=== PATIENT | female | born 1940 | race Caucasian/White ===

== ENCOUNTER 2016-12-26 15:01 | Inpatient (IN) | payer MEDICARE, OTHER ==
[~2016-12-26] VITALS: Ht 154.9 cm; Wt 52.2 kg
--- NOTE | 2016-12-26 15:02 | NUR ---
AAOX3, BIBRA 878 FROM HOME C/O N/V/D AFTER TAKING A NEW PRESCRIPTION MEDICATION. BS=80MG/DL IN THE FIELD. RR IS EVEN AND UNLABORED WITH NAD NOTED. SKIN IS WARM AND DRY. AWAITING MD FOR KALYN. Addendum: 12/26/16 at 1541 by COMFORT THE NEW PRESCRIBED MEDICATION IS CALLED NAMZADIANE.
--- NOTE | 2016-12-26 15:14 | NUR ---
DR SCALES AT BS FOR KALYN.
[2016-12-26] MEDS ORDERED: ONDANSETRON HCL/PF 4 MG/2 ML VIAL ONE ×3 (15:23→17:29)
[2016-12-26] MEDS ORDERED: IV SET PRIMARY 1 EA INFUS.SET MC ONE (15:23)
[2016-12-26] MEDS ORDERED: IV NS 0.9% 1,000 ML ONE (15:23)
[2016-12-26] MEDS ORDERED: INSULIN HUMALOG PUMP (15:25)
[2016-12-26] MEDS ORDERED: AMLO2.5T PO (15:25)
[2016-12-26 15:29] LABS: BASOPHILS # (AUTO) 0.1 /CMM (0.0-0.2); BASOPHILS % (AUTO) 0.7 % (0.0-2.0); EOSINOPHILS # (AUTO) 0.1 /CMM (0.0-0.7); EOSINOPHILS % (AUTO) 1.1 % (0.0-6.0); HEMATOCRIT 38 % (33-45); HEMOGLOBIN 12.9 g/dL (11.5-14.8); LYMPHOCYTES # (AUTO) 1.1 /CMM (0.8-4.8); LYMPHOCYTES % (AUTO) 12.4 % (20.0-44.0); MEAN CORPUSCULAR HEMOGLOBIN 31 PG (26.0-33.0); MEAN CORPUSCULAR HGB CONC 34 g/dl (31.0-36.0); MEAN CORPUSCULAR VOLUME 91 fL (82-100); MONOCYTES # (AUTO) 0.3 /CMM (0.1-1.30); MONOCYTES % (AUTO) 3.8 % (2.0-12.0); NEUTROPHILS # (AUTO) 7.5 /CMM (1.8-8.9); PLATELET COUNT (AUTO) 307 /CMM (150-450); RDW COEFFICIENT OF VARIATION 13.1 (11.5-15.0); RED BLOOD CELL COUNT(AUTO) 4.11 MIL/uL (4.0-5.2); WHITE BLOOD COUNT (AUTO) 9.1 K/uL (4.3-11.0)
[2016-12-26] MEDS ORDERED: IV NS 0.9% 1,000 ML BAG IV ONE (15:30)
[2016-12-26] MEDS ORDERED: ONDANSETRON HCL/PF 4 MG/2 ML VIAL IVP ONE (15:30)
[2016-12-26 15:40] LABS: CARBON DIOXIDE 28 mmol/L (21-32); CHLORIDE 105 mmol/L (98-107); CREATININE 0.9 mg/dL (0.6-1.3); GLUCOSE 82 mg/dL (74-106); POTASSIUM 3.8 mmol/L (3.5-5.1); SODIUM SERUM 142 mmol/L (136-145); UREA NITROGEN, BLOOD 29 mg/dL (7-18)
[2016-12-26 15:48] LABS: TROPONIN I < 0.017 ng/mL (0.00-0.056)
[2016-12-26] MEDS ORDERED: METOCLOPRAMIDE HCL 10 MG/2 ML VIAL ONE (15:52)
[2016-12-26] MEDS ORDERED: IV NS 0.9% 50 ML IV ONE (15:52)
[2016-12-26] MEDS ORDERED: SECONDARY IV SET 1 EA INFUS.SET MC ONE (15:52)
[2016-12-26 15:57] LABS: ALANINE AMINOTRANSFERASE 24 U/L (12-78); ALBUMIN 3.6 g/dL (3.4-5.0); ALKALINE PHOSPHATASE 90 U/L (46-116); ASPARTATE AMINOTRANSFERASE 22 U/L (15-37); BILIRUBIN,DIRECT 0.1 mg/dL (0.0-0.2); BILIRUBIN,TOTAL 0.4 mg/dL (0.2-1.0); TOTAL PROTEIN, SERUM 7.1 g/dL (6.4-8.2)
[2016-12-26] MEDS ORDERED: METOCLOPRAMIDE HCL 10 MG/2 ML VIAL IV ONE (16:00)
[2016-12-26] MEDS ORDERED: ONDANSETRON HCL/PF 4 MG/2 ML VIAL IV ONE ×2 (16:00→18:00)
--- NOTE | 2016-12-26 16:17 | NUR ---
DR SCALES AT BS FOR KALYN.
--- NOTE | 2016-12-26 16:24 | NUR ---
DARRIUS GARCIA, RUBINA LOMBARDI NP COMMERCIAL ESCROW OFFICER
--- NOTE | 2016-12-26 16:25 | NUR ---
CALLED NURSING SUP. FOR TELE BED
[2016-12-26 17:07] LABS: APPEARANCE,URINE Clear (CLEAR); BILIRUBIN,URINE Negative (NEGATIVE); BLOOD, URINE Negative Ery/uL (NEGATIVE); COLOR,URINE Yellow (YELLOW); KETONES,URINE 15 (NEGATIVE); LEUKOCYTE ESTERASE ,URINE Negative (NEGATIVE); NITRITE, URINE Negative (NEGATIVE); PH,URINE 8.5 (5.0-8.0); PROTEIN,URINE Negative (NEGATIVE); UGLUCOSE Negative (NEGATIVE); UROBILINOGEN,URINE 0.2 EU/dL (0.2)
--- NOTE | 2016-12-26 17:19 | NUR ---
REPORT GIVEN TO CHANTELLE MARIN FOR ALEXIS TELE [phone]
[2016-12-26 17:26] LABS: BACTERIA,URINE None seen /HPF (None Seen); RBC,URINE 0-2 /HPF (0-2); SQUAMOUS EPITHELIAL CELL,UR Few /HPF (None Seen); WBC,URINE 0-2 /HPF (0-3)
--- NOTE | 2016-12-26 17:35 | NUR ---
DR SCALES VERBALLY ORDERED ZOFRAN 4MG IVP
--- NOTE | 2016-12-26 18:15 | NUR ---
RN ADMITTING NOTES PATIENT ARRIVED TO UNIT AT 1814. ALERT AND ORIENTED X3. AT BEDSIDE. COMPLAINING ON NAUSEA. NO EMESIS PRESENT AT THIS TIME. WILL CONTINUE TO ASSESS AND MONITOR PATIENT CONDITION.
[2016-12-26] MEDS ORDERED: ZOLPIDEM TARTRATE 5 MG TABLET PO PRN (18:30)
[2016-12-26] MEDS ORDERED: MAGNESIUM HYDROXIDE 30 ML UDC PO PRN (18:30)
[2016-12-26] MEDS ORDERED: DEXTROSE 50%-WATER 50 ML DISP.SYRIN IV PRN (18:30)
[2016-12-26] MEDS ORDERED: ACETAMINOPHEN 325 MG TABLET PO PRN (18:30)
[2016-12-26] MEDS ORDERED: IV D5/ 0.9% NACL 1,000 ML IV PRN (18:30)
[2016-12-26] MEDS ORDERED: Z GUARD REMEDY 2 OZ OINT TP PRN (18:30)
[2016-12-26] MEDS ORDERED: ONDANSETRON HCL/PF 4 MG/2 ML VIAL IVP PRN (18:30)
[2016-12-26] MEDS: BLOOD SUGAR DIAGNOSTIC 1 EACH STRIP IN SCH ×2 (18:47→20:50)
--- NOTE | 2016-12-26 19:05 | NUR ---
FRUIT LOADER MACHINE OPERATOR NOTES: RECEIVED PT AWAKE AND A/O X3 IN BED WITH AT BEDSIDE. PT IS ON TELE AND IS SINUS RHYTHM 69. CALL LIGHT WITHIN PT'S REACH. BED KEPT IN LOCKED, LOWEST POSITION, AND SIDE RAILS X 2 UP. PT HAS IV ON R HAND 20G AND IS PATENT AND INTACT. PT IS TO BE INFUSED WITH IV D5/0.9%NACL 1,000 ML AT 75ML/HR. NO SIGNS OR SYMPTOMS OF DISTRESS NOTED AT THIS TIME. PT HAS HER OWN INSULIN PUMP. WILL CONTINUE TO MONITOR PT.
--- NOTE | 2016-12-26 19:24 | NUR ---
RN CLOSING NOTES GAVE REPORT TO TECHNICAL MANAGER NURSE FOR ALEXIS.
[2016-12-26] MEDS ORDERED: IV SET PRIMARY PUMP SET 1 EA INFUS.SET MC ONE (19:57)
[2016-12-26 20:00] VITALS: BP 143/64
[2016-12-26 20:24] VITALS: BP 143/64
--- NOTE | 2016-12-26 20:52 | NUR ---
INVOICE MACHINE OPERATOR NOTES: BLOOD SUGAR WAS 125. WILL CONTINUE TO MONITOR PT.
[2016-12-27] VITALS (7 sets, daily range): BP systolic 140–144; BP diastolic 55–89
--- NOTE | 2016-12-27 00:01 | NUR ---
MATHEMATICIAN NOTES: BLOOD SUGAR WAS 190. WILL CONTINUE TO MONITOR PT.
[2016-12-27] MEDS: BLOOD SUGAR DIAGNOSTIC 1 EACH STRIP IN SCH ×3 (04:15→09:07)
[2016-12-27 07:03] LABS: BASOPHILS % (AUTO) 0.6 % (0.0-2.0); EOSINOPHILS % (AUTO) 0.6 % (0.0-6.0); HEMATOCRIT 38 % (33-45); HEMOGLOBIN 13.1 g/dL (11.5-14.8); LYMPHOCYTES # (AUTO) 1.3 /CMM (0.8-4.8); MEAN CORPUSCULAR HEMOGLOBIN 32 PG (26.0-33.0); MEAN CORPUSCULAR HGB CONC 34 g/dl (31.0-36.0); MEAN CORPUSCULAR VOLUME 92 fL (82-100); MONOCYTES # (AUTO) 0.5 /CMM (0.1-1.30); MONOCYTES % (AUTO) 6.5 % (2.0-12.0); NEUTROPHILS # (AUTO) 5.5 /CMM (1.8-8.9); NEUTROPHILS % (AUTO) 74.3 % (43.0-81.0); PLATELET COUNT (AUTO) 290 /CMM (150-450); RED BLOOD CELL COUNT(AUTO) 4.15 MIL/uL (4.0-5.2); WHITE BLOOD COUNT (AUTO) 7.4 K/uL (4.3-11.0)
--- NOTE | 2016-12-27 07:05 | NUR ---
MARKET DEVELOPMENT TRAINER NOTES: ALL NEEDS WERE ATTENDED AND ANTICIPATED FOR. NO SIGNS OR SYMPTOMS OF DISTRESS NOTED AT THIS TIME. PT IS LAYING IN BED AND IS AWAKE, A/OX3. PT IS ON TELE MONITOR AND IS SINUS RHYTHM 69. PT HAS IV ON R HAND 20G AND IS PATENT AND INTACT AND IS BEING INFUSED WITH D5/0.9% NACL 1,000ML AT 75ML/HR. CALL LIGHT WITHIN PT'S REACH. BED KEPT IN LOCKED, LOWEST POSITION, AND SIDE RAILS X 2 UP. ENDORSED TO AM NURSE FOR ALEXIS.
[2016-12-27 07:23] LABS: CHOLESTEROL 231 mg/dL (<200); HDL CHOLESTEROL 85 mg/dL (40-60); LDL 119 mg/dL (0-99); TRIGLYCERIDES 52 mg/dL (30-150)
[2016-12-27 07:29] LABS: CALCIUM, SERUM 8.6 mg/dL (8.5-10.1); CARBON DIOXIDE 27 mmol/L (21-32); CHLORIDE 107 mmol/L (98-107); CREATININE 0.8 mg/dL (0.6-1.3); GLUCOSE 199 mg/dL (74-106); PHOSPHORUS 2.9 mg/dL (2.5-4.9); POTASSIUM 4.1 mmol/L (3.5-5.1); SODIUM SERUM 144 mmol/L (136-145); UREA NITROGEN, BLOOD 19 mg/dL (7-18)
--- NOTE | 2016-12-27 07:30 | NUR ---
FINGERNAIL FORMER NOTES PT IN BED, AWAKE, ALERT AND ORIENTED, NO COMPLAINT OF PAIN, BREATHING PATTERN NORMAL, CALL LIGHT WITHIN REACH, PLAN OF CARE DISCUSSED WITH PT, VERBALIZED UNDERSTANDING, NEEDS ATTENDED.
[2016-12-27] MEDS ORDERED: AMLODIPINE BESYLATE 2.5 MG TABLET PO SCH (09:00)
--- NOTE | 2016-12-27 10:53 | NUR ---
RN MS NOTES PT IN BED, AWAKE, ALERT AND ORIENTED, NOT IN PAIN OR DISTRESS, NO COMPLAINT OF NAUSEA OR VOMITING, NO DIARRHEA NOTED, PT SEEN BY DR. MOREL, PLAN OF CARE AND DISCHARGE ORDER GIVEN, PT EDUCATION GIVEN REGARDING INSULIN PUMP USE, PT TO FOLLOW UP WITH HER PRIMARY CARE PHYSICIAN, PT VERBALIZED UNDERSTANDING, DISCHARGE INSTRUCTIONS PROVIDED, VERBALIZED UNDERSTANDING, BELONGINGS ACCOUNTED FOR, PICKED UP BY , PT ABLE TO AMBULATE WITH STEADY GAIT, LEFT IN STABLE CONDITION.
== END 2016-12-27 10:47 | disposition home or self-care (01) | DRG 641 ==
LOC: ER 15:05 → TELE 17:42 → MED 12-27 08:23
PROVIDERS: ADMIT Nurse Practitioner Acute Care; ATTEND Nurse Practitioner Acute Care
DX: E86.0 Dehydration (principal); R11.2 Nausea with vomiting, unspecified; I25.10 Atherosclerotic heart disease of native coronary artery without angina pectoris; Z79.4 Long term (current) use of insulin; Z88.2 Allergy status to sulfonamides; Z99.89 Dependence on other enabling machines and devices; T50.995A Adverse effect of other drugs, medicaments and biological substances, initial encounter; F03.90 Unspecified dementia, unspecified severity, without behavioral disturbance, psychotic disturbance, mood disturbance, and anxiety; Y92.009 Unspecified place in unspecified non-institutional (private) residence as the place of occurrence of the external cause; E10.649 Type 1 diabetes mellitus with hypoglycemia without coma
CPT/HCPCS: 36415; 71010-TC; 80048-TC; 80061-TC; 80076-TC; 81000-TC; 82962-TC; 83735-TC; 83880; 84100-TC; 84484-TC; 85025-TC; 87081-TC; A4216; A4606; J2405; J2765; J7030; J7042; Z7610

== ENCOUNTER 2017-07-02 12:03 | Inpatient (IN) | payer MEDICARE, OTHER ==
[~2017-07-02] VITALS: Ht 154.9 cm; Wt 50.3 kg
[~2017-07-02 12:03] MED LIST: AMLO2.5T PO; INSULIN HUMALOG PUMP
[2017-07-02] MEDS ORDERED: NITROGLYCERIN 0.4 MG/TAB BOTTLE ONE (12:40)
[2017-07-02] MEDS ORDERED: ASPIRIN 81 MG TAB.CHEW ONE (12:40)
[2017-07-02 12:49] LABS: BASOPHILS # (AUTO) 0.1 /CMM (0.0-0.2); BASOPHILS % (AUTO) 0.9 % (0.0-2.0); EOSINOPHILS % (AUTO) 0.1 % (0.0-6.0); HEMATOCRIT 35 % (33-45); HEMOGLOBIN 11.6 g/dL (11.5-14.8); LYMPHOCYTES # (AUTO) 0.7 /CMM (0.8-4.8); LYMPHOCYTES % (AUTO) 6.8 % (20.0-44.0); MEAN CORPUSCULAR HEMOGLOBIN 31 PG (26.0-33.0); MEAN CORPUSCULAR HGB CONC 33 g/dl (31.0-36.0); MEAN CORPUSCULAR VOLUME 94 fL (82-100); MONOCYTES # (AUTO) 0.5 /CMM (0.1-1.30); MONOCYTES % (AUTO) 4.9 % (2.0-12.0); NEUTROPHILS # (AUTO) 9.6 /CMM (1.8-8.9); NEUTROPHILS % (AUTO) 87.3 % (43.0-81.0); PLATELET COUNT (AUTO) 266 /CMM (150-450); RDW COEFFICIENT OF VARIATION 13.9 (11.5-15.0); RED BLOOD CELL COUNT(AUTO) 3.77 MIL/uL (4.0-5.2)
--- NOTE | 2017-07-02 12:57 | NUR ---
MEDICATIONS GIVEN ORDERED BP 158/71. PT AMBULATED TO BATHROOM NO DIZZINESS REPORTED.
[2017-07-02] MEDS ORDERED: ASPIRIN 81 MG TAB.CHEW PO ONE (13:00)
[2017-07-02] MEDS ORDERED: NITROGLYCERIN 0.4 MG/TAB BOTTLE SL ONE (13:00)
[2017-07-02 13:01] LABS: ALANINE AMINOTRANSFERASE 37 U/L (12-78); ALBUMIN 3.4 g/dL (3.4-5.0); ALKALINE PHOSPHATASE 103 U/L (46-116); ASPARTATE AMINOTRANSFERASE 23 U/L (15-37); BILIRUBIN,DIRECT 0.1 mg/dL (0.0-0.2); BILIRUBIN,TOTAL 0.6 mg/dL (0.2-1.0); CALCIUM, SERUM 9.2 mg/dL (8.5-10.1); CARBON DIOXIDE 25 mmol/L (21-32); CHLORIDE 102 mmol/L (98-107); CREATININE 1.1 mg/dL (0.6-1.3); INR 0.96 (0.87-1.13); POTASSIUM 4.9 mmol/L (3.5-5.1); SODIUM SERUM 138 mmol/L (136-145); TROPONIN I < 0.017 ng/mL (0.00-0.056); UREA NITROGEN, BLOOD 39 mg/dL (7-18)
[2017-07-02 13:03] LABS: GLUCOSE 540 mg/dL (74-106)
[2017-07-02] MEDS ORDERED: NITR0.4T6 SL (13:26)
[2017-07-02] MEDS ORDERED: PRAV40TA3 PO (13:26)
[2017-07-02] MEDS ORDERED: BLOO-668 IN (13:28)
[2017-07-02] MEDS ORDERED: IV NS 0.9% 1,000 ML BAG IV ONE (13:30)
[2017-07-02] MEDS ORDERED: NITROGLYCERIN 0.4 MG/TAB BOTTLE SL PRN (14:00)
[2017-07-02] MEDS ORDERED: MAGNESIUM HYDROXIDE 30 ML UDC PO PRN (14:00)
[2017-07-02] MEDS ORDERED: ONDANSETRON HCL/PF 4 MG/2 ML VIAL IVP PRN (14:00)
[2017-07-02] MEDS ORDERED: Z GUARD REMEDY 2 OZ OINT TP PRN (14:00)
[2017-07-02] MEDS ORDERED: MAG HYDROX/AL HYDROX/SIMETH 30 ML UDC PO PRN (14:00)
[2017-07-02] MEDS ORDERED: ZOLPIDEM TARTRATE 5 MG TABLET PO PRN (14:00)
[2017-07-02] MEDS ORDERED: DEXTROSE 50%-WATER 50 ML DISP.SYRIN IV PRN (14:00)
[2017-07-02] MEDS ORDERED: BLOOD SUGAR DIAGNOSTIC 1 EACH STRIP IN SCH (14:00)
[2017-07-02] MEDS ORDERED: ACETAMINOPHEN 325 MG TABLET PO PRN (14:00)
[2017-07-02] MEDS ORDERED: HYDROCODONE/APAP 5/325MG 1 EACH TABLET PO PRN ×2 (14:00→14:30)
--- NOTE | 2017-07-02 14:15 | NUR ---
RN ADMITTING NOTES PATIENT ARRIVED TO FLOOR VIA A GURNEY FROM ER. NO SIGNS AND SYMPTOMS OF DISTRESS. AT BEDSIDE. BED IN LOW POSITION, LOCKED AND TWO SIDE RAILS ARE UP. WILL CONTINUE TO ASSESS AND MONITOR PATIENT.
--- NOTE | 2017-07-02 15:37 | NUR ---
DR BIGGS NOTIFIED OF BLOOD SUGAR 420. PATIENT DOESN'T WANT TO TAKE INSULIN PRESCRIBED.
--- NOTE | 2017-07-02 15:45 | NUR ---
PER DR BIGGS, GIVE 10 UNITS OF INSULIN AND RE-CHECK BEFORE DINNER
--- NOTE | 2017-07-02 15:50 | NUR ---
DIANNE AGREED TO 10 UNITS. ADMINISTERED
[2017-07-02] MEDS: INSULIN REGULAR, HUMAN 100 UNIT/ML 3 ML VIAL SQ PRN ×3 (15:55→23:50)
[2017-07-02 16:11] VITALS: BP 125/64
--- NOTE | 2017-07-02 17:35 | NUR ---
RE-CHECKED BLOOD SUGAR. BLOOD SUGAR 355, 20 UNITS ADMINISTERED. AWARE
[2017-07-02] MEDS: BLOOD SUGAR DIAGNOSTIC 1 EACH STRIP IN SCH ×2 (17:46→23:47)
--- NOTE | 2017-07-02 18:53 | NUR ---
RN CLOSING NOTES PATIENT IS IN BED RESTING, ALERT AND ORIENTED TO NAME, PLACED AND TIME. NO ACUTE CHANGES THROUGHOUT THE SHIFT. NO SIGNS OF DISTRESS OR SHORT OF BREATH. IV ACCESS IS INTACT AND PATENT. ALL NEEDS WERE ANTICIPATED AND MET. PATIENT KEPT DRY AND CLEAN. BED IS IN LOW AND LOCKED POSITION, CALL LIGHT WITHIN REACH FOR SAFETY. WILL ENDORSE TO CYLINDER TESTER.
--- NOTE | 2017-07-02 19:25 | NUR ---
TELE/RN NOTES RECEIVED PT. LYING IN BED. AWAKE, ALERT AND ORIENTED X4. BREATHING EVEN AND UNLABORED ON ROOM AIR. NO SOB, RESPIRATORY DISTRESS OR COMPLAINTS OF PAIN NOTED AT THIS TIME. NO COMPLAINTS OF CHEST PAIN NOTED AT THIS TIME. PT. WITH EXTERNAL PAPER STRIPPER PRESENT AND INTACT. CURRENT RHYTHM = SINUS RHYTHM HR 79. PT. WITH RIGHT AC 20 GAUGE IV SALINE LOCK PRESENT, PATENT AND INTACT. BED LOCKED AND IN LOWEST POSITION, SIDE RAILS UP X2, CALL LIGHT WITHIN REACH, WILL CONTINUE TO MONITOR.
[2017-07-02 20:00] VITALS: BP 120/54
[2017-07-02] MEDS ORDERED: ATORVASTATIN 10 MG TABLET PO SCH (22:00)
[2017-07-03] VITALS: BP 114/54
[2017-07-03 04:00] VITALS: BP 108/57
[2017-07-03] MEDS: BLOOD SUGAR DIAGNOSTIC 1 EACH STRIP IN SCH ×2 (06:23→12:27)
[2017-07-03] MEDS: INSULIN REGULAR, HUMAN 100 UNIT/ML 3 ML VIAL SQ PRN ×3 (06:24→16:02)
--- NOTE | 2017-07-03 06:48 | NUR ---
TELE/RN NOTES PT. IS LYING IN BED RESTING. BREATHING EVEN AND UNLABORED ON ROOM AIR. NO SOB, RESPIRATORY DISTRESS OR COMPLAINTS OF PAIN NOTED AT THIS TIME. NO COMPLAINTS OF CHEST PAIN NOTED AT THIS TIME. PT. APPEARS COMFORTABLE AT THE MOMENT. PT. WITH EXTERNAL EQUIPMENT PROCESSER STORAGE PRESENT AND INTACT. CURRENT RHYTHM = SINUS RHYTHM HR 76. PT. WITH RIGHT AC 20 GAUGE IV SALINE LOCK PRESENT, PATENT AND INTACT. ALL PT. NEEDS MET. ALL DUE MEDICATIONS GIVEN. BED LOCKED AND IN LOWEST POSITION, SIDE RAILS UP X2, CALL LIGHT WITHIN REACH, WILL ENDORSE TO DAYSHIFT NURSE FOR CONTINUITY OF CARE.
[2017-07-03 07:54] LABS: BASOPHILS # (AUTO) 0.1 /CMM (0.0-0.2); BASOPHILS % (AUTO) 0.8 % (0.0-2.0); EOSINOPHILS % (AUTO) 0.3 % (0.0-6.0); HEMATOCRIT 34 % (33-45); HEMOGLOBIN 11.2 g/dL (11.5-14.8); LYMPHOCYTES # (AUTO) 1.5 /CMM (0.8-4.8); LYMPHOCYTES % (AUTO) 14.9 % (20.0-44.0); MEAN CORPUSCULAR HEMOGLOBIN 31 PG (26.0-33.0); MEAN CORPUSCULAR HGB CONC 33 g/dl (31.0-36.0); MEAN CORPUSCULAR VOLUME 93 fL (82-100); MONOCYTES # (AUTO) 0.7 /CMM (0.1-1.30); MONOCYTES % (AUTO) 6.5 % (2.0-12.0); NEUTROPHILS # (AUTO) 8.1 /CMM (1.8-8.9); NEUTROPHILS % (AUTO) 77.5 % (43.0-81.0); PLATELET COUNT (AUTO) 260 /CMM (150-450); RDW COEFFICIENT OF VARIATION 13.9 (11.5-15.0); RED BLOOD CELL COUNT(AUTO) 3.61 MIL/uL (4.0-5.2); WHITE BLOOD COUNT (AUTO) 10.4 K/uL (4.3-11.0)
[2017-07-03 08:00] VITALS: BP 110/69
--- NOTE | 2017-07-03 08:00 | NUR ---
TELE/RN AM SHIFT INITIAL NOTES RECEIVED PT AWAKE SITTING IN BED, A/O X 4, PT DENIES ANY CHEST PAIN. NO ACUTE CHANGE OF CONDITION NOTED. ON ROOM AIR SATURATING @ 100%, LUNG SOUNDS CLEAR. ON TELE WITH SINUS RHYTHM, HR 79. IV SITE FLUSHED, PATENT WITH NO S/S OF INFECTION. PT IS COMFORTABLE AT THIS TIME. SCHEDULED AM MEDS TO BE GIVEN. CL WITHIN REACHED AND SAFETY MAINTAINED. ON GOING MONITORING.
--- NOTE | 2017-07-03 08:15 | NUR ---
TELE/RN ROUNDS - DR. RUDOLPH PT SEEN & EXAMINED BY DR. RUDOLPH, WITH ORDER RECEIVED TO OBTAIN CONSENT FOR MYOCARDIAL STRESS TEST. NEW ORDER NOTED AND TO BE CARRIED OUT.
[2017-07-03 08:20] LABS: CALCIUM, SERUM 8.8 mg/dL (8.5-10.1); CARBON DIOXIDE 24 mmol/L (21-32); CHLORIDE 108 mmol/L (98-107); CREATININE 0.9 mg/dL (0.6-1.3); GLUCOSE 138 mg/dL (74-106); MAGNESIUM 1.9 mg/dL (1.8-2.4); PHOSPHORUS 2.8 mg/dL (2.5-4.9); POTASSIUM 4.3 mmol/L (3.5-5.1); SODIUM SERUM 142 mmol/L (136-145); UREA NITROGEN, BLOOD 34 mg/dL (7-18)
[2017-07-03 08:28] LABS: CHOLESTEROL 162 mg/dL (<200); HDL CHOLESTEROL 96 mg/dL (40-60); LDL 63 mg/dL (0-99); TRIGLYCERIDES 55 mg/dL (30-150)
[2017-07-03] MEDS ORDERED: REGADENOSON 0.4 MG/5 ML DISP.SYRIN IVP ONE (08:30)
[2017-07-03] MEDS ORDERED: CARVEDILOL 6.25 MG TABLET PO SCH (09:00)
[2017-07-03] MEDS ORDERED: LOSARTAN POTASSIUM 50 MG TABLET PO SCH (09:00)
[2017-07-03] MEDS ORDERED: AMLODIPINE BESYLATE 2.5 MG TABLET PO SCH (09:00)
--- NOTE | 2017-07-03 09:40 | NUR ---
TELE1/RN ROUNDS - DR. BIGGS PT SEEN & EXAMINED BY DR. BIGGS. TO CONNECT INSULIN PUMP TO PT. NO NEW ORDERS RECEIVED AT THIS TIME. MONITORING CONTINUED.
[2017-07-03 09:43] LABS: THYROID STIMULATING HORMONE 1.094 uIU/mL (0.358-3.74)
[2017-07-03] MEDS ORDERED: CARV6.252 PO (09:48)
[2017-07-03] MEDS ORDERED: LOSA50TA3 PO (09:48)
--- NOTE | 2017-07-03 15:51 | NUR ---
MS/RN STAT GLUCOSE RESULT NOTIFIED DR. BIGGS OF RESULT OF STAT BLOOD GLUCOSE, 440. WITH ORDERS TO GIVE 20 UNITS OF REGULAR INSULIN PER THE SLIDING SCORE, PT HAS NO S/S OF HYPERGLYCEMIA. ORDER NOTED AND CARRIED OUT.
[2017-07-03 16:00] VITALS: BP_SYST 114; BP_SYST 127; BP_DIAS 59; BP_DIAS 71
[2017-07-03] MEDS ORDERED: INSULIN REGULAR, HUMAN 100 UNIT/ML 10 ML VIAL SQ ONE (16:30)
--- NOTE | 2017-07-03 17:00 | NUR ---
MS/RN Requesting to go home Patient requesting to go home and take care of blood sugars, stated that the longer she remained in the hospital, the higher her blood sugars would be. Stated that regular insulin does not work for her and that she needed humalog, and for the medication to be administered throughout the day via her insulin pump. Dr Gonzalez made aware, order given to discharge patient to home.
--- NOTE | 2017-07-03 17:17 | NUR ---
MS/factory manager Patient discharged to home in stable condition, escorted to main lobby by and BUILDING CERTIFIER via wheelchair. All personal belongings previously signed for, exit care completed by Katharine. Heplock and name bands removed prior to discharge.
--- NOTE | 2017-07-03 17:18 | NUR ---
MS/MASONRY INSPECTOR HOME PT WAS GIVEN DISCHARGE INSTRUCTIONS EARLIER IN THE DAY, VERBALIZED UNDERSTANDING. PERSONAL BELONGINGS RETURNED TO PT, INVENTORY LOG SIGNED OFF. DISCHARGE DOCUMENTS GIVEN TO PT. IV SITE WAS REMOVED BY CHARGE NURSE.
== END 2017-07-03 17:20 | disposition home or self-care (01) | DRG 193 ==
LOC: ER 12:07 → TELE 13:36 → MED 07-03 10:02
PROVIDERS: ADMIT Family Medicine; ATTEND Family Medicine
DX: R09.1 Pleurisy (principal); N17.0 Acute kidney failure with tubular necrosis; E10.65 Type 1 diabetes mellitus with hyperglycemia; I25.10 Atherosclerotic heart disease of native coronary artery without angina pectoris; I10 Essential (primary) hypertension; I25.2 Old myocardial infarction; I70.0 Atherosclerosis of aorta; Z96.41 Presence of insulin pump (external) (internal); Z79.4 Long term (current) use of insulin; E10.9 Type 1 diabetes mellitus without complications; Z88.5 Allergy status to narcotic agent; Z88.2 Allergy status to sulfonamides
CPT/HCPCS: 36415; 71010-TC; 80048-TC; 80061-TC; 80076-TC; 82728-TC; 82947-TC; 82962-TC; 83540-TC; 83735-TC; 84100-TC; 84439-TC; 84443-TC; 84484-TC; 85025-TC; 85378-TC; 85730-TC; 87081-TC; 93307-TC; A4606; J1815; J2405; J2785; J7030; Z7610

== ENCOUNTER 2017-07-08 06:07 | Inpatient (IN) | payer MEDICARE, OTHER ==
[~2017-07-08] VITALS: Ht 157.5 cm; Wt 52.2 kg
[~2017-07-08 06:07] MED LIST changes: -AMLO2.5T PO; +BLOO-668 IN; +CARV6.252 PO; +LOSA50TA3 PO; +NITR0.4T48 SL; +PRAV40TA3 PO
--- NOTE | 2017-07-08 06:10 | NUR ---
To bed 6 a 76 yo female patient bibself c/o chest pain x 2 hrs. Patient is aaox4, nad noted, vss. nondiaphoretic. ambulatory. placed patient on tele and vs monitor. gowned. comfort measures initiated.
--- NOTE | 2017-07-08 06:25 | NUR ---
Dr Gold at bedside to evaluate patient.
[2017-07-08] MEDS ORDERED: NITROGLYCERIN 0.4 MG/TAB BOTTLE ONE (06:37)
--- NOTE | 2017-07-08 06:40 | NUR ---
started a saline lock on the right forearm g20, blood drawn and sent to lab.
[2017-07-08] MEDS ORDERED: NITROGLYCERIN 0.4 MG/TAB BOTTLE SL ONE (07:00)
[2017-07-08 07:03] LABS: BASOPHILS % (AUTO) 0.2 % (0.0-2.0); EOSINOPHILS # (AUTO) 0.2 /CMM (0.0-0.7); EOSINOPHILS % (AUTO) 1.6 % (0.0-6.0); HEMATOCRIT 33 % (33-45); HEMOGLOBIN 10.8 g/dL (11.5-14.8); LYMPHOCYTES # (AUTO) 1.4 /CMM (0.8-4.8); LYMPHOCYTES % (AUTO) 13.2 % (20.0-44.0); MEAN CORPUSCULAR HEMOGLOBIN 30 PG (26.0-33.0); MEAN CORPUSCULAR HGB CONC 33 g/dl (31.0-36.0); MEAN CORPUSCULAR VOLUME 93 fL (82-100); MONOCYTES # (AUTO) 0.5 /CMM (0.1-1.30); MONOCYTES % (AUTO) 4.6 % (2.0-12.0); NEUTROPHILS # (AUTO) 8.3 /CMM (1.8-8.9); NEUTROPHILS % (AUTO) 80.4 % (43.0-81.0); PLATELET COUNT (AUTO) 298 /CMM (150-450); RDW COEFFICIENT OF VARIATION 13.4 (11.5-15.0); RED BLOOD CELL COUNT(AUTO) 3.56 MIL/uL (4.0-5.2); WHITE BLOOD COUNT (AUTO) 10.3 K/uL (4.3-11.0)
[2017-07-08 07:11] LABS: ALANINE AMINOTRANSFERASE 138 U/L (12-78); ALBUMIN 2.9 g/dL (3.4-5.0); ALKALINE PHOSPHATASE 162 U/L (46-116); ASPARTATE AMINOTRANSFERASE 51 U/L (15-37); BILIRUBIN,TOTAL 0.2 mg/dL (0.2-1.0); CALCIUM, SERUM 8.8 mg/dL (8.5-10.1); CARBON DIOXIDE 28 mmol/L (21-32); CHLORIDE 105 mmol/L (98-107); CREATININE 0.9 mg/dL (0.6-1.3); D-DIMER 1.65 mg/L(FEU (0.17-0.50); GLUCOSE 122 mg/dL (74-106); INR 0.9 (0.87-1.13); POTASSIUM 4.7 mmol/L (3.5-5.1); PROTHROMBIN TIME 9.4 SECS (9.5-12.7); SODIUM SERUM 139 mmol/L (136-145); TOTAL PROTEIN, SERUM 6.8 g/dL (6.4-8.2); UREA NITROGEN, BLOOD 32 mg/dL (7-18)
[2017-07-08 07:14] LABS: TROPONIN I < 0.017 ng/mL (0.00-0.056)
--- NOTE | 2017-07-08 07:15 | NUR ---
report received from Iram LOCKHART for ALEXIS. NAD noted. all needs attended to.
[2017-07-08] MEDS ORDERED: AMLO2.5T2 PO (07:58)
[2017-07-08] MEDS ORDERED: CT SWABBABLE VALVE TRANS SET 1 EA INFUS.SET MC ONE (08:09)
[2017-07-08] MEDS ORDERED: IV NS 0.9% 250 ML IV ONE (08:09)
[2017-07-08] MEDS ORDERED: IOHEXOL-350 100 ML VIAL IV ONE (08:09)
[2017-07-08] MEDS ORDERED: IV NS 0.9% 1,000 ML BAG IV ONE (08:30)
[2017-07-08] MEDS ORDERED: ONDANSETRON HCL/PF 4 MG/2 ML VIAL ONE (08:36)
[2017-07-08] MEDS ORDERED: ONDANSETRON HCL/PF 4 MG/2 ML VIAL IV ONE (09:00)
--- NOTE | 2017-07-08 09:18 | NUR ---
REPORT GIVEN TO TOMAS LOCKHART FOR ADMISSION
--- NOTE | 2017-07-08 09:55 | NUR ---
DR RUDOLPH AT BEDSIDE
--- NOTE | 2017-07-08 10:18 | NUR ---
PT TRANSPORTED TO [facility] IN STABLE CONDITION VIA ACLS PROTOCOL
[2017-07-08 10:25] VITALS: BP 136/54
[2017-07-08] MEDS ORDERED: INSULIN REGULAR, HUMAN 100 UNIT/ML 3 ML VIAL SQ PRN (11:00)
[2017-07-08] MEDS ORDERED: NITROGLYCERIN 0.4 MG/TAB BOTTLE SL PRN (11:00)
[2017-07-08] MEDS ORDERED: ONDANSETRON HCL/PF 4 MG/2 ML VIAL IVP PRN (11:00)
[2017-07-08] MEDS ORDERED: ACETAMINOPHEN 325 MG TABLET PO PRN (11:00)
[2017-07-08] MEDS ORDERED: MORPHINE SULFATE INJ 2 MG/ML DISP.SYRIN IV PRN ×2 (11:00)
[2017-07-08] MEDS ORDERED: DOCUSATE SODIUM 100 MG CAPSULE PO PRN (11:00)
[2017-07-08] MEDS ORDERED: DEXTROSE 50%-WATER 50 ML DISP.SYRIN IV PRN (11:00)
--- NOTE | 2017-07-08 11:00 | NUR ---
RN ADMITTING NOTES PATIENT ARRIVED TO UNIT IN A STABLE CONDITION. NO SIGNS AND SYMPTOMS OF DISTRESS. WILL CONTINUE TO MONITOR AND ASSESS PATIENT THROUGH OUT MY SHIFT
[2017-07-08] MEDS: BLOOD SUGAR DIAGNOSTIC 1 EACH STRIP IN SCH ×2 (11:32→17:36)
[2017-07-08 14:34] LABS: IRON, SERUM 25 ug/dl (50-175); TOTAL IRON BINDING CAPACITY 222 ug/dl (250-450)
[2017-07-08 18:05] VITALS: BP 116/70
--- NOTE | 2017-07-08 18:20 | NUR ---
CHANTELLE AMA DISCHARGE NOTES PATIENT LEFT AMA. PATIENT PROVIDED WITH ALL DISCHARGE INFORMATION AND A COPY OF HER CURRENT MEDICAL RECORD HOSPITALIZATION. PATIENT WILL F/U WITH HER PCP IN AM. PATIENT REFUSED STRESS TEST AND INSISTED ON GOING HOME. RISKS AND BENEFITS EXPLAINED TO PATIENT. PATIENT ADVISED TO COME BACK IF SYMPTOMS ARE WORSENING. TOOK PATIENT HOME VIA PRIVATE CAR.
[2017-07-08] MEDS ORDERED: ATORVASTATIN 10 MG TABLET PO SCH (22:00)
[2017-07-09] MEDS ORDERED: AMLODIPINE BESYLATE 2.5 MG TABLET PO SCH (09:00)
[2017-07-09] MEDS ORDERED: ASPIRIN 81 MG TAB.CHEW PO SCH (09:00)
== END 2017-07-08 18:07 | disposition left against medical advice (07) | DRG 193 ==
LOC: ER 06:12 → TELE 09:25
PROVIDERS: ADMIT Internal Medicine; ATTEND Internal Medicine
DX: R09.1 Pleurisy (principal); N17.0 Acute kidney failure with tubular necrosis; E44.0 Moderate protein-calorie malnutrition; I25.10 Atherosclerotic heart disease of native coronary artery without angina pectoris; I25.2 Old myocardial infarction; Z88.5 Allergy status to narcotic agent; Z88.2 Allergy status to sulfonamides; Z79.4 Long term (current) use of insulin; Z79.899 Other long term (current) drug therapy; I12.9 Hypertensive chronic kidney disease with stage 1 through stage 4 chronic kidney disease, or unspecified chronic kidney disease; E10.22 Type 1 diabetes mellitus with diabetic chronic kidney disease; N18.9 Chronic kidney disease, unspecified; D63.8 Anemia in other chronic diseases classified elsewhere
CPT/HCPCS: 36415; 71010-TC; 76700-TC; 80048-TC; 80076-TC; 82962-TC; 83540-TC; 84484-TC; 85025-TC; 85378-TC; 85730-TC; 87081-TC; J1815; J2405; J7030; J7050; Q9967

== ENCOUNTER 2020-03-05 22:22 | Inpatient (IN) | payer MEDICARE, OTHER ==
[~2020-03-05] VITALS: Ht 154.9 cm; Wt 48.1 kg
[~2020-03-05 22:22] MED LIST changes: +AMLO2.5T2 PO; -CARV6.252 PO; -LOSA50TA3 PO
[2020-03-05] MEDS ORDERED: IV NS 0.9% 500 ML BAG IV ONE (22:30)
[2020-03-05] MEDS ORDERED: ONDANSETRON HCL/PF 4 MG/2 ML VIAL IVP ONE ×2 (22:30→23:30)
--- NOTE | 2020-03-05 22:32 | NUR ---
HARIS FROM HOME FOR C/O DIZZINESS. PT FOUND W/ HIGH BLOOD SUGAR ENROUTE. CURRENTLY AAX4, RESPONSIVE. BREATHING EVENLY. NO SOB. W/ C/O CP. VSS. PT WAS PLACED IN BED 3 AND ON MONITOR. VSS. WILL CONT TO MONITOR ,
[2020-03-05] MEDS ORDERED: ONDANSETRON HCL/PF 4 MG/2 ML VIAL ONE ×2 (22:35→23:17)
[2020-03-05 22:52] LABS: BASOPHILS # (AUTO) 0.1 /CMM (0.0-0.2); BASOPHILS % (AUTO) 0.9 % (0.0-2.0); EOSINOPHILS % (AUTO) 0.4 % (0.0-6.0); HEMATOCRIT 37 % (33-45); HEMOGLOBIN 11.8 g/dL (11.5-14.8); LYMPHOCYTES # (AUTO) 1.2 /CMM (0.8-4.8); LYMPHOCYTES % (AUTO) 12.8 % (20.0-44.0); MEAN CORPUSCULAR HGB CONC 32 g/dl (31.0-36.0); MEAN CORPUSCULAR VOLUME 97 fL (82-100); MONOCYTES # (AUTO) 0.4 /CMM (0.1-1.30); MONOCYTES % (AUTO) 4.2 % (2.0-12.0); NEUTROPHILS # (AUTO) 7.8 /CMM (1.8-8.9); NEUTROPHILS % (AUTO) 81.7 % (43.0-81.0); PLATELET COUNT (AUTO) 274 /CMM (150-450); WHITE BLOOD COUNT (AUTO) 9.5 K/uL (4.3-11.0)
[2020-03-05 23:12] LABS: ALANINE AMINOTRANSFERASE 46 U/L (12-78); ALBUMIN 3.4 g/dL (3.4-5.0); ALKALINE PHOSPHATASE 112 U/L (46-116); ASPARTATE AMINOTRANSFERASE 40 U/L (15-37); BILIRUBIN,DIRECT 0.2 mg/dL (0.0-0.2); BILIRUBIN,TOTAL 0.7 mg/dL (0.2-1.0); CALCIUM, SERUM 9.3 mg/dL (8.5-10.1); CARBON DIOXIDE 22 mmol/L (21-32); CHLORIDE 97 mmol/L (98-107); CREATININE 1.6 mg/dL (0.6-1.3); LIPASE 102 U/L (73-393); POTASSIUM 5.9 mmol/L (3.5-5.1); SODIUM SERUM 132 mmol/L (136-145); TOTAL PROTEIN, SERUM 6.6 g/dL (6.4-8.2); UREA NITROGEN, BLOOD 52 mg/dL (7-18)
[2020-03-05 23:13] LABS: GLUCOSE 569 mg/dL (74-106)
[2020-03-05] MEDS ORDERED: MORPHINE SULFATE INJ 4 MG/ML DISP.SYRIN ONE (23:18)
[2020-03-05] MEDS ORDERED: MORPHINE SULFATE INJ 2 MG/ML DISP.SYRIN IV ONE (23:30)
--- NOTE | 2020-03-06 00:16 | NUR ---
CALLED PT'S TO UPDATE HIM RE PT'S STATUS AND ASK ABOUT HER HOME MEDS W/ NO ANSWER. LEFT A MESSAGE.
[2020-03-06] MEDS ORDERED: INSULIN REGULAR, HUMAN 100 UNIT/ML 10 ML VIAL ONE (00:22)
[2020-03-06] MEDS ORDERED: INSULIN REGULAR, HUMAN 100 UNIT/ML 10 ML VIAL IV ONE (00:30)
--- NOTE | 2020-03-06 00:37 | NUR ---
REPEAT BLOOD SUGAR:479. DR TRAN MADE AWARE .INSULIN PUMP DISCONNECTED AND INSULIN 10U IV GIVEN ORDERED. WILL CONT TO MONITOR,
--- NOTE | 2020-03-06 00:49 | NUR ---
CALL FROM LAB. COVID NEGATIVE.
[2020-03-06] MEDS ORDERED: METOCLOPRAMIDE HCL 10 MG/2 ML VIAL ONE (01:23)
[2020-03-06] MEDS ORDERED: METOCLOPRAMIDE HCL 10 MG/2 ML VIAL IV ONE ×2 (01:30→21:30)
[2020-03-06] MEDS ORDERED: IV NS 0.9% 1,000 ML IV PRN (02:10)
[2020-03-06] MEDS ORDERED: Z GUARD REMEDY 2 OZ OINT TP PRN (02:30)
[2020-03-06] MEDS ORDERED: MORPHINE SULFATE INJ 2 MG/ML DISP.SYRIN IV PRN (02:30)
[2020-03-06] MEDS ORDERED: MAGNESIUM HYDROXIDE 30 ML UDC PO PRN (02:30)
[2020-03-06] MEDS ORDERED: MAG HYDROX/AL HYDROX/SIMETH 30 ML UDC PO PRN (02:30)
[2020-03-06] MEDS ORDERED: SODIUM POLYSTYRENE SULFONATE 15 G/60 ML BOTTLE PO ONE (02:30)
[2020-03-06] MEDS ORDERED: ACETAMINOPHEN 325 MG TABLET PO PRN (02:30)
[2020-03-06] MEDS ORDERED: DEXTROSE 50%-WATER 50 ML DISP.SYRIN IV PRN (02:30)
--- NOTE | 2020-03-06 02:31 | NUR ---
REPORT GIVEN TO DEREK
--- NOTE | 2020-03-06 03:00 | NUR ---
[facility] in stable condition.
[2020-03-06] MEDS ORDERED: METRONIDAZOLE 500MG/ NS 100ML 100 ML IV ONE (03:22)
[2020-03-06] MEDS ORDERED: SODIUM POLYSTYRENE SULFONATE 15 G/60 ML BOTTLE ONE (03:41)
[2020-03-06 04:00] VITALS: BP 116/50
[2020-03-06] MEDS: METRONIDAZOLE 500MG/ NS 100ML 500 MG in PREMIX 1 EA IV SCH ×4 (05:22→23:46)
[2020-03-06] MEDS: INSULIN REGULAR, HUMAN 100 UNIT/ML 3 ML VIAL SQ PRN ×3 (05:36→23:52)
[2020-03-06] MEDS: ONDANSETRON HCL/PF 4 MG/2 ML VIAL IVP PRN ×2 (06:07→18:31)
[2020-03-06] MEDS: BLOOD SUGAR DIAGNOSTIC 1 EACH STRIP IN SCH ×4 (06:16→23:47)
--- NOTE | 2020-03-06 06:21 | NUR ---
RN notes Admitted an 79 year old female from ER with diagnosis of hyperkalemia, AKF, hyperglycemia and malfunctioning insulin pump in stable condition. No distress noted, breathing even and unlabored. Alert and oriented with episodes of forgetfulness, confusion and disorientation. Patient able to ambulate from stretcher to bed with assistance. Complaining of nausea and vomiting, zofran given with help. Blood sugar at 0600 was 405, 20 units per sliding scale. MD aware. Kayexalate given for elevated potassium level, patient able to tolerate PO. No complaint of pain. Vital signs wnl. Kept clean and dry. Will endorse to next shift for continuity of care.
[2020-03-06 06:46] LABS: BASOPHILS % (AUTO) 0.3 % (0.0-2.0); HEMATOCRIT 35 % (33-45); HEMOGLOBIN 11.2 g/dL (11.5-14.8); LYMPHOCYTES # (AUTO) 0.5 /CMM (0.8-4.8); LYMPHOCYTES % (AUTO) 3.8 % (20.0-44.0); MEAN CORPUSCULAR HGB CONC 32 g/dl (31.0-36.0); MEAN CORPUSCULAR VOLUME 97 fL (82-100); MONOCYTES # (AUTO) 0.2 /CMM (0.1-1.30); MONOCYTES % (AUTO) 1.7 % (2.0-12.0); NEUTROPHILS # (AUTO) 12.9 /CMM (1.8-8.9); NEUTROPHILS % (AUTO) 94.2 % (43.0-81.0); PLATELET COUNT (AUTO) 269 /CMM (150-450); RED BLOOD CELL COUNT(AUTO) 3.64 MIL/uL (4.0-5.2); WHITE BLOOD COUNT (AUTO) 13.7 K/uL (4.3-11.0)
--- NOTE | 2020-03-06 07:15 | NUR ---
PHOTO TECHNICIAN NOTES PATIENT IN BED A/OX3 ON ROOM AIR. NO ISOLATION. AMBULATORY WITH ASSIST. RIGHT HAND #20 PATENT NS 100 ML HR RUNNING. NO BEDOYA. CALL LIGHT WITHIN REACH. BED AT THE LOWEST POSITION LOCKED. WILL CONTINUE TO MONITOR THE PATIENT.
[2020-03-06 07:18] LABS: ALANINE AMINOTRANSFERASE 73 U/L (12-78); ALBUMIN 3.2 g/dL (3.4-5.0); ALKALINE PHOSPHATASE 118 U/L (46-116); ASPARTATE AMINOTRANSFERASE 79 U/L (15-37); BILIRUBIN,TOTAL 0.6 mg/dL (0.2-1.0); CALCIUM, SERUM 9.2 mg/dL (8.5-10.1); CARBON DIOXIDE 17 mmol/L (21-32); CHLORIDE 99 mmol/L (98-107); CREATININE 1.4 mg/dL (0.6-1.3); MAGNESIUM 2.1 mg/dL (1.8-2.4); POTASSIUM 5.4 mmol/L (3.5-5.1); SODIUM SERUM 136 mmol/L (136-145); TOTAL PROTEIN, SERUM 6.4 g/dL (6.4-8.2); UREA NITROGEN, BLOOD 49 mg/dL (7-18)
[2020-03-06 07:47] LABS: CHOLESTEROL 165 mg/dL (<200); HDL CHOLESTEROL 75 mg/dL (40-60); LDL 68 mg/dL (0-99); THYROID STIMULATING HORMONE 1.229 uIU/mL (0.358-3.74); TRIGLYCERIDES 83 mg/dL (30-150)
[2020-03-06] MEDS: PANTOPRAZOLE 40 MG TABLET.DR PO SCH (07:54)
[2020-03-06 08:00] VITALS: BP 138/61
[2020-03-06 08:31] LABS: GLUCOSE 463 mg/dL (74-106)
--- NOTE | 2020-03-06 08:41 | NUR ---
MANAGER SQL NOTES NOTIFIED DR MOREL ABOUT THE BG LEVEL OF 463 POTASSIUM 5.4 AND ANION GAP 26. Addendum: 03/06/20 at 0920 by PIO OSEGUERA RN DR MOREL AWARE OF THE LAB RESULTS.
[2020-03-06 12:00] VITALS: BP 117/64
[2020-03-06] MEDS ORDERED: NITROGLYCERIN 0.4 MG/TAB BOTTLE SL PRN (12:00)
--- NOTE | 2020-03-06 15:00 | NUR ---
PLASTIC TECHNICIAN NOTES PATIENT`S BROUGHT BELONGINGS AND FOOD. EXPLAINED TO COUPLES THAT PATIENT HAS NPO STATUES AND CAN NOT RESUME FOOD. FOOD PLACED IN THE FRIDGE. BELONGINGS GIVEN TO PATIENT. MEDICATION SENT TO PHARMACY. BELONGINGS PAPER SIGNED.
[2020-03-06 16:00] VITALS: BP 115/52
[2020-03-06] MEDS: IV 1/2NS 1000 ML 1,000 ML IV PRN (16:43)
[2020-03-06] MEDS ORDERED: LEVOFLOXACIN 750 MG /D5W 150ML 750 MG in PREMIX 1 EA IV SCH (17:00)
--- NOTE | 2020-03-06 18:08 | NUR ---
MS RN NOTES PER DR MOREL IT IS OK TO START DIABETIC DIET. INSTRUCTED PT TO START THE ORAL INTAKE SLOWLY. PT REFUSED THE INSULIN.
--- NOTE | 2020-03-06 18:14 | NUR ---
BEET WORKER NOTES METRONIDAZOLE AND LEVOFLOXACIN COMPATIBLE. WILL ADMINISTER.
--- NOTE | 2020-03-06 18:35 | NUR ---
MS RN NOTES PATIENT COMPLAINING OF NAUSEA, ZOFRAN GIVEN.
--- NOTE | 2020-03-06 18:47 | NUR ---
MS RN NOTES PATIENT IN BED SITTING. DINNER PROVIDED. PATIENT WAS COMPLAINING OF NAUSEA , ZOFRAN GIVEN. IS INVOLVED IN HER CARE AND WANTED TO HAVE VISITATION. EXPLAINED THAT VISITATION IS NOT POSSIBLE DUE TO PANDEMICS.MEDS GIVEN , ALL NEEDS ATTENDED. REPORT GIVEN TO GREASE CUP FILLER NURSE FOR ALEXIS.
[2020-03-06 20:00] VITALS: BP 123/60
--- NOTE | 2020-03-06 20:28 | NUR ---
MS/TELE/RN AT INITIAL ROUNDING AT 1930 RECEIVED PATIENT AWAKE, ALERT, HAS C/O NAUSEA, JUST RECEIVED ZOFRAN IV ABOUT ONE HOUR AGO, WILL MONITOR, IF NAUSEA PERSIST WILL CALL THE DOCTOR FOR ORDER, PATIENT HAS NO C/O PAIN, NO DISTRESS NOTED, FALL PRECAUTION PER PROTOCOL, ENCOURAGED TO CALL FOR ANY ASSISTANCE, VERBALIZED UNDERSTANDING, WILL MONITOR.
--- NOTE | 2020-03-06 21:21 | NUR ---
MS/TELE/RN PATIENT IS STILL C/O NAUSEA, CALLED [facility], SPOKE TO DR. BIGGS. ORDER OF REGLAN 10 MG IVP WAS RECEIVED AND TO HOLD OFF DIET FOR NOW AND MONITOR.
[2020-03-06] MEDS ORDERED: ATORVASTATIN 40 MG TABLET PO SCH (22:00)
--- NOTE | 2020-03-06 22:00 | NUR ---
MS/TELE/RN PATIENT IS SLEEPING AFTER REGLAN IV WAS GIVEN, PATIENT APPEAR COMFORTABLE, NO SIGNS OF DISTRESS NOTED, CALL LIGHT IN REACH. WILL CONTINUE TO MONITOR.
[2020-03-07] MEDS: ONDANSETRON HCL/PF 4 MG/2 ML VIAL IVP PRN (00:09)
--- NOTE | 2020-03-07 00:59 | NUR ---
MS/TELE/RN PATIENT IS SLEEPING AT THIS TIME AFTER THE ZOFRAN IV WAS GIVEN FO C/O NAUSEA, PATIENT APPEAR COMFORTABLE, NO SIGNS OF DISTRESS NOTED, CALL LIGHT IN REACH. WILL CONTINUE TO MONITOR.
[2020-03-07] MEDS: BLOOD SUGAR DIAGNOSTIC 1 EACH STRIP IN SCH (05:40)
[2020-03-07] MEDS: INSULIN REGULAR, HUMAN 100 UNIT/ML 3 ML VIAL SQ PRN (05:43)
[2020-03-07] MEDS: METRONIDAZOLE 500MG/ NS 100ML 500 MG in PREMIX 1 EA IV SCH (05:48)
[2020-03-07] MEDS: IV 1/2NS 1000 ML 1,000 ML IV PRN (05:51)
--- NOTE | 2020-03-07 06:27 | NUR ---
MS/TELE/RN PATIENT IS SLEEPING AT THIS TIME, EASILY AROUSABLE, APPEAR COMFORTABLE, NO SIGNS OF DISTRESS NOTED, CALL LIGHT IN REACH, ALL NEEDS ATTENDED AT THIS TIME, WILL CONTINUE TO MONITOR.
[2020-03-07 06:36] LABS: APPEARANCE,URINE CLEAR (CLEAR); BILIRUBIN,URINE NEGATIVE (NEGATIVE); BLOOD, URINE NEGATIVE Ery/uL (NEGATIVE); COLOR,URINE YELLOW (YELLOW); KETONES,URINE >=80 (NEGATIVE); LEUKOCYTE ESTERASE ,URINE NEGATIVE (NEGATIVE); NITRITE, URINE NEGATIVE (NEGATIVE); PH,URINE 5.5 (5.0-8.0); PROTEIN,URINE NEGATIVE (NEGATIVE); UGLUCOSE 500 MG/DL mg/dL (NEGATIVE); UROBILINOGEN,URINE 0.2 EU/dL (0.2)
[2020-03-07 06:42] LABS: BASOPHILS % (AUTO) 0.3 % (0.0-2.0); HEMATOCRIT 36 % (33-45); HEMOGLOBIN 11.5 g/dL (11.5-14.8); LYMPHOCYTES % (AUTO) 5.6 % (20.0-44.0); MEAN CORPUSCULAR HGB CONC 32 g/dl (31.0-36.0); MEAN CORPUSCULAR VOLUME 96 fL (82-100); MONOCYTES # (AUTO) 0.5 /CMM (0.1-1.30); NEUTROPHILS # (AUTO) 15.9 /CMM (1.8-8.9); NEUTROPHILS % (AUTO) 91.1 % (43.0-81.0); PLATELET COUNT (AUTO) 287 /CMM (150-450); RED BLOOD CELL COUNT(AUTO) 3.77 MIL/uL (4.0-5.2); WHITE BLOOD COUNT (AUTO) 17.4 K/uL (4.3-11.0)
[2020-03-07 06:54] LABS: CALCIUM, SERUM 8.6 mg/dL (8.5-10.1); CREATININE 1.3 mg/dL (0.6-1.3); MAGNESIUM 1.9 mg/dL (1.8-2.4); PHOSPHORUS 3.4 mg/dL (2.5-4.9); POTASSIUM 3.3 mmol/L (3.5-5.1)
[2020-03-07] MEDS: PANTOPRAZOLE 40 MG TABLET.DR PO SCH (07:30)
[2020-03-07 08:00] VITALS: BP 119/72
--- NOTE | 2020-03-07 09:52 | NUR ---
MS/RN NOTES PATIENTS IS DOWNSTAIRS, PATIENT IS LEAVING AGAINST MEDICAL ADVICE. FORM IS SIGNED. CHARGE NURSE AWARE.
[2020-03-07] MEDS ORDERED: POTASSIUM CHLORIDE 20 MEQ TAB.PRT.SR PO SCH (10:00)
--- NOTE | 2020-03-07 10:29 | NUR ---
MS/RN Incident report Incident report completed -unique ID - [id number]
== END 2020-03-07 10:10 | disposition left against medical advice (07) | DRG 919 ==
LOC: ER 22:23 → TELE 03-06 02:09 → MED 03-06 10:09
DX: T85.694A Other mechanical complication of insulin pump, initial encounter (principal); N17.0 Acute kidney failure with tubular necrosis; E10.65 Type 1 diabetes mellitus with hyperglycemia; I25.10 Atherosclerotic heart disease of native coronary artery without angina pectoris; I10 Essential (primary) hypertension; E78.5 Hyperlipidemia, unspecified; E87.5 Hyperkalemia; I25.2 Old myocardial infarction; Z79.4 Long term (current) use of insulin; Z96.41 Presence of insulin pump (external) (internal); Z88.5 Allergy status to narcotic agent; Z88.2 Allergy status to sulfonamides; Z79.899 Other long term (current) drug therapy; A08.4 Viral intestinal infection, unspecified; N13.9 Obstructive and reflux uropathy, unspecified
CPT/HCPCS: 36415; 71045-TC; 80048-TC; 80053-TC; 80061-TC; 80076-TC; 81000-TC; 82962-TC; 83690-TC; 83735-TC; 84100-TC; 84443-TC; 84484-TC; 85025-TC; 87081-TC; A4216; C9803-CS; G0378; J1815; J1956; J2270; J2405; J2765; J3490; J7030